=== PATIENT | male | born 1990 | race Caucasian/White ===

== ENCOUNTER 2024-07-17 07:08 | Emergency (ER) | payer OTHER ==
[2024-07-17] MEDS ORDERED: Ondansetron PF 4 MG/2 ML Vial ONE (07:53)
[2024-07-17] MEDS ORDERED: Ketorolac Tromethamine 30 MG (1 mL) VIAL ONE (07:53)
[2024-07-17 07:55] LABS: #Basophils 0.06 10x3/uL (0.0-0.2); #Monocytes 0.53 10x3/uL (0.0-1.1); #Neutrophils 5.63 10x3/uL (1.5-8.4); %Basophils 0.7 % (0.0-2.0); %Eosinophils 1.2 % (0.0-6.0); %Lymphocytes 21.3 % (18.0-47.0); %Monocytes 6.6 % (0.0-10.0); %Neutrophils 69.8 % (40.0-75.0); Hematocrit 41.1 % (38.8-50.0); Mean Corpuscular HGB CONC 34.1 g/dL (32.0-36.0); Mean Corpuscular Hemoglobin 28.1 pg (27.0-33.0); Mean Corpuscular Volume 82.4 fL (81.2-95.1); Mean Platelet Volume 9.7 fL (7.4-10.4); Platelet Count 245 10x3/uL (150-450); RBC Distribution Width 12.1 % (11.5-14.5); Red Blood Cell (RBC) Count 4.99 10x6/uL (4.32-5.72); White Blood Cell (WBC) Count 8.1 10x3/uL (3.5-10.5)
[2024-07-17 08:10] LABS: ALT (SGPT) 31 U/L (8-55); AST (SGOT) 21 U/L (5-34); Albumin 4.2 g/dL (3.5-5.0); Alkaline Phosphatase 75 U/L (40-110); Anion Gap 13 mmol/L (10-20); BUN (Urea Nitrogen) 13 mg/dL (8.9-20.6); Bilirubin, Total 0.7 mg/dL (0.2-1.2); Calc. Creatinine Clearance 0 mL/min (70-130); Calcium 8.8 mg/dL (7.8-10.44); Carbon Dioxide 23 mmol/L (22-29); Chloride 106 mmol/L (98-107); Estimated GFR 112; Globulin 2.9 g/dL (2.4-3.5); Glucose 106 mg/dL (70-105); Lipase 35 U/L (8-78); Potassium 4.1 mmol/L (3.5-5.1); Protein, Total 7.1 g/dL (6.0-8.3); Sodium 138 mmol/L (136-145)
[2024-07-17] MEDS ORDERED: Morphine 4 MG/ML VIAL ONE (08:52)
[2024-07-17 11:44] LABS: Bilirubin Neg (Negative); Blood, Urine 250 (Negative); Glucose, Urine (Dipstick) Normal (Negative); Ketone, Urine Negative (Negative); Leukocyte Negative (Negative); Nitrite Negative (Negative); Protein, Urine (Dipstick) Negative (Neg-Trace); Urobilinogen Normal mg/dL (Less than 2)
[2024-07-17 11:45] LABS: Clarity Clear (Clear)
[2024-07-17 11:53] LABS: CAUTI Indications for Culture Pelvic or flank pain; RBC/HPF Greater than 50 HPF (0-3)
[2024-07-17 11:54] LABS: Bacteria/HPF Rare-Few HPF (None Seen); Urine Culture Reflex No No; WBC/HPF 0-3 HPF (0-3)
== END 2024-07-17 11:58 | disposition home or self-care (01) ==
LOC: CSHERS 07:08
DX: N13.5 Crossing vessel and stricture of ureter without hydronephrosis (principal); Z55.6 Problems related to health literacy
CPT/HCPCS: 74176; 80053; 81001; 83690; 85025; 96374; 96375; J1885; J2272; J2405